=== PATIENT | male | born 1995 | race African-American/Black ===

== ENCOUNTER → 2018-01-08 14:20 | Outpatient (CLI) | payer OTHER, SELFPAY ==
--- NOTE | 2018-01-08 14:35 | RAD_ITS ---
STUDY: X-RAY - PELVIS AND RIGHT HIP REASON FOR EXAM: Male, 22 years old. Groin pain TECHNIQUE: Radiological exam, hip, unilateral, with pelvis when performed; 2 or 3 views. COMPARISON: None. FINDINGS: There is a non-specific bowel gas pattern. Normal visualized soft tissue structures. Normal bilateral iliac wings, sacroiliac joints and visualized sacrum. Normal bilateral superior and inferior pubic rami. Normal pubic symphysis. Normal bilateral ischial tuberosities. Normal visualized femoral head. Normal acetabulum. Normal hip joint. RAD/Hip 2-3 Views with Pelvis IMPRESSION: Normal x-ray examination of the pelvis and hip. No fracture Electronically Signed: Zechariah Santamaria, at 7:23 EDT Tel , Service support ,
== END ==
PROVIDERS: Family Provider Family Medicine; PCP Family Medicine; Visit Provider Family Medicine
DX: M25.551 Pain in right hip (principal)
CPT/HCPCS: 73502

== ENCOUNTER → 2018-06-11 08:08 | Outpatient (CLI) | payer OTHER, SELFPAY ==
--- NOTE | 2018-06-11 08:11 | RAD_ITS ---
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 Technique and procedure: Informed consent was obtained prior to any intervention. A timeout was also performed prior to any intervention to confirm the correct patient and body part of interest for intervention. The area of interest was also marked prior to any intervention. All elements of maximal sterile barrier technique were followed per protocol. Using sterile technique the anterior aspect of the right hip and inguinal region cleansed and draped appropriately. The femoral vessels were palpated by the physician and subsequently marked so the needle placement was lateral to this region. Fluoroscopic imaging was performed prior to needle placement. A 25-gauge standard 3.5 cm length needle was advanced to the right hip head neck junction, using intermittent fluoroscopy to check needle tip position. With tubing, proximal and 8 cc Isovue iodinated contrast solution was injected into the right hip joint. After confirmation of intra-articular needle placement, prescribed medication was then injected per doctor's orders ((40 mg (1 cc) Kenalog and 4 cc 2% lidocaine)). Fluoroscopic spot (2) images demonstrate opacification of the right hip joint and some mild extravasation into the surrounding soft tissues. Total fluoroscopy time: 111 seconds. Dose: 63.7 mGy No immediate complications occurred during the study. Patient was given postoperative instructions including but not limited to warnings of signs of infection and bleeding per Dr. Patel. RAD/Inj/Asp Dominik Jt Should/Hip/Knee IMPRESSION: Technically successful fluoroscopic guided right hip arthrogram and intra-articular prescribe medication injection. Electronically Signed: Abdi Patel, at 13:17 EDT Tel , Service support ,
== END ==
PROVIDERS: Family Provider Family Medicine; PCP Family Medicine; Referring Provider Family Medicine; Visit Provider Family Medicine
DX: M00-M99 Diseases of the musculoskeletal system and connective tissue (principal)
CPT/HCPCS: 20610; 77002; Q9967